=== PATIENT | female | born 1945 | race Caucasian/White ===

== ENCOUNTER 2018-03-08 20:14 | Inpatient (IN) | payer MEDICARE, OTHER ==
[~2018-03-08] VITALS: Ht 152.4 cm; Wt 54.0 kg
--- NOTE | ~2018-03-08 | CON ---
[address] [address] CONSULTATION Name: KRYSTINA GANN Room: [address] ADM IN M.R.#: [id number] Admission: 03/09/18 Attend Phys: Pranav Hernandez Discharge: Date of : 43 Report #: [id number] THIS REPORT FOR: //name// CC: [facility] physician/PCP Jabari Chaidez DATE OF SERVICE: 03/12/2018 REQUESTING PHYSICIAN: Jabari Chaidez DO. REASON FOR CONSULTATION: Acute kidney injury. HISTORY OF PRESENT ILLNESS: The patient is a 72-year-old female admitted to the hospital on 03/09/2018 with complaints of pain in the left kidney, not feeling well, some weakness and nausea. She has known history of chronic kidney disease and history of nephrolithiasis. So when she came in, she was found to have left pyelonephritis with a stone that was obstructing her left UPJ. She was taken to operating room. Dr. Boykin performed retrograde pyelogram and placed a stent there. Her creatinine on admission was 2.4, it is 3.0 now. Her white count unfortunately did go up and it is 15.2 now. So, she had some improvement, white count dropped from 17,000 to 11,000 after the procedure, but now it is slowly coming up again and creatinine is going up as well. PAST MEDICAL HISTORY: Significant for: 1. Chronic kidney disease stage 3. 2. History of recurrent nephrolithiasis. 3. History of urinary incontinence. MEDICATIONS: Reviewed. FAMILY HISTORY: Noncontributory to this condition. SOCIAL HISTORY: No tobacco or alcohol abuse. REVIEW OF SYSTEMS: Positive for urinary incontinence. She is really bothered by that and she wants to have Mcfadden catheter in again. She is still weak, but feels overall better. No fever, no chills, no nausea, no vomiting at the present time. PHYSICAL EXAMINATION: GENERAL: Awake, alert, oriented. VITAL SIGNS: Blood pressure is 160/67, heart rate is 80, temperature 36.8. HEENT: Pupils round. NECK: Supple. LUNGS: Clear. CARDIOVASCULAR: [place] [address] CONSULTATION Name: KRYSTINA GANN Room: [address] IN [facility]#: [id number] Admission: 03/09/18 Attend Phys: Pranav Hernandez Discharge: Date of : 43 Report #: [id number] ABDOMEN: Soft. LOWER EXTREMITIES: No edema. ASSESSMENT: 1. 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 2. Status post pyelogram with the placement of the stent in the left ureter. 3. The patient is on antibiotics. 4. Urinary incontinence. PLAN: 1. Reinsert Mcfadden. 2. P.o. hydration. The patient tells me that she has not been drinking fluids now because she does not want to have urinary incontinence. It is very important for her to hydrate herself well. 3. I will follow labs. I will also order ultrasound to see how the drainage from the left kidney is now. By: [id number] [id number] Mayes MD /WINSOME
[2018-03-08 20:18] VITALS: BP 107/74
[2018-03-08 20:53] LABS: ABSOLUTE BASOPHILS 0.1 thou/uL (0.0-0.2); ABSOLUTE EOSINOPHILS 0.1 thou/uL (0.0-0.7); ABSOLUTE LYMPHOCYTES 2.3 thou/uL (0.8-5.3); ABSOLUTE MONOCYTES 1.3 thou/uL (0.0-1.2); ABSOLUTE NEUTROPHILS 13.1 thou/uL (1.6-8.1); BASOPHILS 0.6 %; EOSINOPHILS 0.5 %; HEMATOCRIT 39.1 % (37.0-47.0); HEMOGLOBIN 12.7 gm/dL (12.0-15.0); LYMPHOCYTES 13.5 %; MCH 28.5 pg (26.0-34.0); MCHC 32.6 g/dL (28.0-37.0); MCV 87.2 fL (80.0-100.0); MONOCYTES 7.9 %; MPV 7.6 fl. (7.2-11.1); NUCLEATED RBCS 0 /100WBC; PLATELET COUNT* 358 thou/uL (150-400); POLYS 77.5 %; RBC 4.48 mil/uL (4.20-5.00); RDW-CV 16.2 % (10.5-14.5)
[2018-03-08 21:04] LABS: ANION GAP 6 mmol/L (7-16); BUN 26 mg/dL (7-18); CALCIUM 10.5 mg/dL (8.5-10.1); CHLORIDE 104 mmol/L (98-107); CO2 27 mmol/L (21-32); CREATININE 2.4 mg/dL (0.6-1.3); GLUCOSE 98 mg/dL (70-99); POTASSIUM 3.9 mmol/L (3.5-5.1); SODIUM 137 mmol/L (136-145)
[2018-03-08 21:15] LABS: ALBUMIN 3.6 g/dL (3.4-5.0); ALKALINE PHOSPHATASE 86 U/L (46-116); SGOT 21 U/L (15-37); SGPT 10 U/L (30-65); TOTAL BILIRUBIN 0.4 mg/dL (<0.1-1.0); TOTAL PROTEIN 8.3 g/dL (6.4-8.2); TROPONIN-I LEVEL <0.06 ng/mL (<0.06)
[2018-03-08 21:16] LABS: MAGNESIUM 2.1 mg/dL (1.8-2.4)
[2018-03-08 23:44] LABS: URINE BILIRUBIN NEGATIVE (Negative); URINE BLOOD 2+ (Negative); URINE CLARITY CLEAR; URINE COLOR STRAW; URINE GLUCOSE-RANDOM NEGATIVE (Negative); URINE KETONES NEGATIVE (Negative); URINE LEUKOCYTES-REFLEX 1+ (Negative); URINE NITRITE-REFLEX NEGATIVE (Negative); URINE PROTEIN TRACE (Negative); URINE SPECIFIC GRAVITY 1.015 (1.005-1.030); URINE UROBILINOGEN 0.2 E.U./dl (0.2-1.0)
[2018-03-08 23:50] LABS: SQUAMOUS 0-3 Few /LPF (0-3); URINE WBC-REFLEX >25 Many /HPF (0-5); WBC CLUMPS Moderate (None Seen)
[2018-03-08 23:51] LABS: BACTERIA-REFLEX >30 Many /HPF (None Seen); CRYSTALS None Seen /LPF (None Seen); FINE GRANULAR CASTS 0-3 Few /LPF (None Seen); MUCUS 4-6 Moderate strn/LPF (None Seen)
[2018-03-09] VITALS (7 sets, daily range): BP systolic 147–168; BP diastolic 56–90
--- NOTE | 2018-03-09 12:04 | EKG ---
[place] [address] ELECTROCARDIOGRAM REPORT Name: GANNTAISHA Room: [address] ADM IN M.R.#: [id number] Admission: 03/09/18 Attend Phys: Pranav Hernandez Discharge: Date of : 43 Report #: [id number] THIS REPORT FOR: //name// [facility] ED Test Date: 2018-03-08 Test Time: 20:54:36 Pat Name: TAISHA GANN Department: Room: [address] Gender: F Car Tracer: MELISSA : 1945 Requested By: Madisyn Schmidt Order Number: [id number] MD: Dejan Gaona Measurements Intervals [place] Rate: 80 P: 82 MD: 149 QRS: 70 QRSD: 94 T: 39 QT: 379 QTc: 438 Interpretive Statements Pacemaker spikes or artifacts Sinus rhythm No previous ECG available for comparison Electronically Signed On 03-09-2018 12:04:07 CDT by Dejan Gaona [email or web address] <ELECTRONICALLY SIGNED> By: Dejan Gaona MD, [facility] 03/09/18 1204 53 53 Dejan Gaona MD, FACC /EPI
[2018-03-09] MEDS ORDERED: ULTRAM 50MG TAB50 MG PO (17:26)
[2018-03-09] MEDS ORDERED: VITAMIN B-12500 MCG PO (17:26)
[2018-03-10 00:15] VITALS: BP 117/47
[2018-03-10 04:46] VITALS: BP 142/43
[2018-03-10 04:52] LABS: ABSOLUTE BASOPHILS 0.1 thou/uL (0.0-0.2); ABSOLUTE EOSINOPHILS 0.2 thou/uL (0.0-0.7); ABSOLUTE LYMPHOCYTES 2.6 thou/uL (0.8-5.3); ABSOLUTE NEUTROPHILS 7.2 thou/uL (1.6-8.1); BASOPHILS 0.5 %; EOSINOPHILS 1.6 %; HEMATOCRIT 32.5 % (37.0-47.0); LYMPHOCYTES 23.2 %; MCH 28.7 pg (26.0-34.0); MCHC 32.3 g/dL (28.0-37.0); MCV 88.7 fL (80.0-100.0); MONOCYTES 8.9 %; MPV 8.1 fl. (7.2-11.1); NUCLEATED RBCS 0 /100WBC; POLYS 65.8 %; RBC 3.67 mil/uL (4.20-5.00); RDW-CV 16.5 % (10.5-14.5)
[2018-03-10 04:58] LABS: CALCIUM 9.2 mg/dL (8.5-10.1); CREATININE 2.6 mg/dL (0.6-1.3); POTASSIUM 4.7 mmol/L (3.5-5.1)
[2018-03-10 05:10] LABS: HEMOGLOBIN 10.5 gm/dL (12.0-15.0); PLATELET COUNT* 272 thou/uL (150-400)
[2018-03-10 08:13] VITALS: BP 157/77
--- NOTE | 2018-03-10 10:08 | CON ---
[address] [address] CONSULTATION Name: KRYSTINA GANN Room: [address] ADM IN M.R.#: [id number] Admission: 03/09/18 Attend Phys: Pranav Hrenandez Discharge: Date of : 43 Report #: [id number] THIS REPORT FOR: //name// CC: [facility] physician/PCP Jabari Chaidez DATE OF SERVICE: 03/09/2018 Infectious Disease Consultation ATTENDING PHYSICIAN: Joseph Reese MD REASON FOR EVALUATION: Complicated urinary tract infection with pyelonephritis. HISTORY OF PRESENT ILLNESS: Chart reviewed, patient examined. The patient is a 72-year-old woman with evaluation, seen through the emergency room with complaints of weakness. She was reported to have multiple falls, had become quite sore. She was squeezing herself across on her buttocks. It is not clear if she has had fevers. Denies significant pulmonary or gastrointestinal related complaints. Evaluation including CBC was elevated at 17,000, creatinine of 2.4, total protein of 8.3. Imaging of the chest showed emphysematous changes. CT noted along the entirety of the spine. CT abdomen and pelvis essentially showed nodular infiltrate, bilateral lungs compatible with pneumonitis. There is gas within the urinary bladder, left ureter, and left renal pelvis. There is a left renal pelvic calculus. There is also a right-sided infrarenal calculus as well. There diverticulosis without diverticulitis. Urinalysis confirmed marked pyuria, marked bacteriuria and cultures pending. Empirically started on therapy with ceftriaxone. Denies any significant pulmonary-related complaints. ALLERGIES: None known. MEDICATIONS: Include enoxaparin, ceftriaxone, pantoprazole, hydralazine, ondansetron, p.r.n. analgesics, and antiemetics. PAST MEDICAL HISTORY: As noted, depression, COPD, neck surgeries. SOCIAL HISTORY: Former smoker. No ethanol. FAMILY HISTORY: Noncontributory. REVIEW OF SYSTEMS: As above. PHYSICAL EXAMINATION: GENERAL: She appears somewhat chronically ill, undernourished. She is pleasant, cooperative. She is in only mild distress. VITAL SIGNS: Temperature 98.6, pulse 79, respirations 18, [place] [address] CONSULTATION Name: KRYSTINA GANN Room: [address] IN [facility]#: [id number] Admission: 03/09/18 Attend Phys: Pranav Hernandez Discharge: Date of : 43 Report #: [id number] 147/61. SKIN: Warm, dry, no rashes. HEENT: Otherwise unremarkable. She is not on supplemental oxygen. NECK: Supple. LUNGS: Diminished breath sounds overall, few scattered crackles at the bases. HEART: Regular. I do not appreciate murmur. ABDOMEN: Soft, really nontender. There are no peritoneal signs. GENITOURINARY: Deferred. RECTAL: Deferred. LABORATORY DATA: CBC: White count of 17.0, H and H 12.7 and 39.1, platelets 358. Electrolytes: Sodium 137, potassium 3.9, chloride 104, bicarbonate is 27, BUN and creatinine 26 and 2.4, glucose of 98. Total protein 8.3, albumin of 3.6. LFTs normal. IMAGING STUDIES: As noted above. ASSESSMENT: Apparent emphysematous pyelonephritis. We will continue empiric antimicrobial therapy. We will add dose of quinolone as well as combination therapy for pseudomonas. Note that urology evaluation pending. Radiography looks worse than she does clinically. We will await results. <ELECTRONICALLY SIGNED> By: Jovanni Steven MD 03/10/18 1008 [id number] Steven MD /nt
[2018-03-10 15:35] VITALS: BP 128/88
--- NOTE | 2018-03-10 16:54 | OP ---
[facility] [address] [place] [address] OPERATIVE REPORT Name: KRYSTINA GANN Room: [address] IN M.R.#: [id number] Admission: 03/09/18 Attend Phys: Pranav Hernandez Discharge: Date of : 43 Report #: [id number] THIS REPORT FOR: //name// CC: [facility] physician/PCP Jabari Chaidez DATE OF SERVICE: 03/09/2018 PREOPERATIVE DIAGNOSIS: Left emphysematous pyelonephritis and left UPJ obstructing stone. POSTOPERATIVE DIAGNOSIS: Left emphysematous pyelonephritis and left UPJ obstructing stone. PROCEDURE: Cystourethroscopy, left retrograde pyelogram, left ureteral stent placement (6 x 26). SURGEON: Dorothy Boykin M.D. ANESTHESIA: General. ESTIMATED BLOOD LOSS: None. COMPLICATIONS: None. SPECIMENS: None. INDICATIONS FOR PROCEDURE: The patient is a 72-year-old female who presented with weakness and low back pain. CT scan revealed left hydronephrosis secondary to a large 1.3 cm left UPJ stone. She had gas in her left collecting system as well. She was afebrile and vital signs were stable, but urgent stent placement was indicated given her infection and obstructing stone. Risks of procedure were discussed including but not limited to infection, bleeding, injury to the urethra, bladder and ureter, need for secondary procedures, stent pain, cardiopulmonary complications. She understands that the stent is not permanent, must be removed in a timely fashion and that we will plan on stone treatment in a couple of weeks after she has completed antibiotic therapy. She voiced understanding and wished to proceed. DESCRIPTION OF PROCEDURE: After informed consent was obtained, the patient was taken back to the operating suite and placed supine. After induction of general anesthesia, she was placed in dorsal lithotomy position, genitalia prepped and draped in standard fashion. Rigid cystoscopy was performed. Bladder mucosa was normal aside from some cystitis cystica. She had some mild trabeculations, but there were no tumors or stones or diverticula. [place] [address] OPERATIVE REPORT Name: GANNKRYSTINA Room: [address] IN [facility].#: [id number] Admission: 03/09/18 Attend Phys: Pranav Hernandez Discharge: Date of : 43 Report #: [id number] cannulate the left UO with the assistance of a 5-Tajik open-ended catheter over the wire, the wire was threaded up into the collecting system, passed the stone without difficulty. I then passed the 5-Tajik open-ended catheter up into the collecting system without difficulty as well. No pus came back when the ureteral catheter was in the collecting system. Contrast was gently injected to delineate the collecting system for stent placement. This showed the stone had been pushed back into the renal pelvis, but she did have some [id number] hydronephrosis. A wire was replaced and a 5-Tajik open-ended catheter was removed. A 6-Tajik x 26 cm double-J stent was threaded over the wire. Good curl was seen within the upper pole and good curl was seen within the bladder. There was no purulence from the left side, just some mild debris. I did not adjust the stent into the renal pelvis as there was simply not much room for the stent alongside the stone and a very narrow renal pelvis. There was no purulent efflux from the stent, but she did have some debris come through the stent. The scope was removed and a Mcfadden catheter was placed. She was awoken, extubated and taken to recovery in satisfactory condition. She will be admitted to the floor on antibiotics, await cultures. She will need a full course of treatment of antibiotics before we intervene on the stone I would anticipate in a couple of weeks. <ELECTRONICALLY SIGNED> By: Dorothy Boykin MD 03/10/18 1654 [id number] Boykin MD /nt
[2018-03-10 20:00] VITALS: BP 141/59
[2018-03-11] VITALS: BP 137/73
[2018-03-11 04:08] VITALS: BP 127/55
[2018-03-11 04:42] LABS: ABSOLUTE LYMPHOCYTES 1.7 thou/uL (0.8-5.3); ABSOLUTE MONOCYTES 1.1 thou/uL (0.0-1.2); ABSOLUTE NEUTROPHILS 10.9 thou/uL (1.6-8.1); BASOPHILS 0.1 %; HEMATOCRIT 31.9 % (37.0-47.0); HEMOGLOBIN 10.4 gm/dL (12.0-15.0); LYMPHOCYTES 12.3 %; MCH 28.6 pg (26.0-34.0); MCHC 32.7 g/dL (28.0-37.0); MCV 87.5 fL (80.0-100.0); MONOCYTES 8.1 %; MPV 8.4 fl. (7.2-11.1); NUCLEATED RBCS 0 /100WBC; PLATELET COUNT* 273 thou/uL (150-400); POLYS 79.5 %; RBC 3.64 mil/uL (4.20-5.00); RDW-CV 16.1 % (10.5-14.5); WBC 13.8 thou/uL (4.0-11.0)
[2018-03-11 04:53] LABS: ALBUMIN 2.8 g/dL (3.4-5.0); CALCIUM 9.8 mg/dL (8.5-10.1); CREATININE 2.6 mg/dL (0.6-1.3); POTASSIUM 4.4 mmol/L (3.5-5.1); TOTAL BILIRUBIN 0.2 mg/dL (<0.1-1.0); TOTAL PROTEIN 6.9 g/dL (6.4-8.2)
[2018-03-11 08:21] VITALS: BP 159/75
[2018-03-11 16:00] VITALS: BP 155/65
[2018-03-11 20:00] VITALS: BP 142/74
[2018-03-11 23:26] VITALS: BP 155/76
[2018-03-12 04:00] VITALS: BP 162/67
[2018-03-12 04:25] LABS: ABSOLUTE BASOPHILS 0.1 thou/uL (0.0-0.2); ABSOLUTE EOSINOPHILS 0.2 thou/uL (0.0-0.7); ABSOLUTE LYMPHOCYTES 2.6 thou/uL (0.8-5.3); ABSOLUTE MONOCYTES 1.3 thou/uL (0.0-1.2); ABSOLUTE NEUTROPHILS 11.1 thou/uL (1.6-8.1); BASOPHILS 0.4 %; EOSINOPHILS 1.2 %; HEMATOCRIT 32.9 % (37.0-47.0); HEMOGLOBIN 10.6 gm/dL (12.0-15.0); LYMPHOCYTES 17.1 %; MCH 28.5 pg (26.0-34.0); MCHC 32.3 g/dL (28.0-37.0); MCV 88.2 fL (80.0-100.0); MONOCYTES 8.7 %; MPV 8.8 fl. (7.2-11.1); NUCLEATED RBCS 0 /100WBC; PLATELET COUNT* 291 thou/uL (150-400); POLYS 72.6 %; RBC 3.74 mil/uL (4.20-5.00); RDW-CV 16.3 % (10.5-14.5); WBC 15.2 thou/uL (4.0-11.0)
[2018-03-12 04:37] LABS: CALCIUM 9.4 mg/dL (8.5-10.1); POTASSIUM 4.2 mmol/L (3.5-5.1); TOTAL BILIRUBIN 0.2 mg/dL (<0.1-1.0); TOTAL PROTEIN 7.2 g/dL (6.4-8.2)
[2018-03-12 04:41] LABS: PREALBUMIN 19.9 mg/dL (18.0-35.7)
[2018-03-12 08:30] VITALS: BP 148/92
[2018-03-12 16:00] VITALS: BP 168/72
[2018-03-12 22:45] VITALS: BP 160/65
[2018-03-13] VITALS: BP 143/75
[2018-03-13 05:23] LABS: CALCIUM 9.7 mg/dL (8.5-10.1); CREATININE 2.9 mg/dL (0.6-1.3); POTASSIUM 4.7 mmol/L (3.5-5.1)
[2018-03-13 08:00] VITALS: BP 128/75
[2018-03-13 16:25] VITALS: BP 115/70
[2018-03-13 20:15] VITALS: BP 144/63
[2018-03-14] VITALS: BP 134/66
[2018-03-14 04:00] VITALS: BP 121/61
[2018-03-14 04:42] LABS: ABSOLUTE BASOPHILS 0.1 thou/uL (0.0-0.2); ABSOLUTE EOSINOPHILS 0.2 thou/uL (0.0-0.7); ABSOLUTE LYMPHOCYTES 2.6 thou/uL (0.8-5.3); ABSOLUTE MONOCYTES 1.1 thou/uL (0.0-1.2); ABSOLUTE NEUTROPHILS 6.4 thou/uL (1.6-8.1); BASOPHILS 0.6 %; EOSINOPHILS 2.1 %; HEMATOCRIT 31.1 % (37.0-47.0); HEMOGLOBIN 10.1 gm/dL (12.0-15.0); MCH 28.9 pg (26.0-34.0); MCHC 32.6 g/dL (28.0-37.0); MCV 88.7 fL (80.0-100.0); MONOCYTES 10.8 %; MPV 9.2 fl. (7.2-11.1); NUCLEATED RBCS 0 /100WBC; PLATELET COUNT* 280 thou/uL (150-400); POLYS 61.5 %; RBC 3.51 mil/uL (4.20-5.00); RDW-CV 16.6 % (10.5-14.5); WBC 10.4 thou/uL (4.0-11.0)
[2018-03-14 05:16] LABS: ALBUMIN 2.7 g/dL (3.4-5.0); ALBUMIN 2.8 g/dL (3.4-5.0); CALCIUM 9.3 mg/dL (8.5-10.1); CALCIUM 9.4 mg/dL (8.5-10.1); CREATININE 2.6 mg/dL (0.6-1.3); PHOSPHORUS* 3.7 mg/dL (2.5-4.9); POTASSIUM 5.1 mmol/L (3.5-5.1); POTASSIUM 5.6 mmol/L (3.5-5.1); TOTAL BILIRUBIN 0.2 mg/dL (<0.1-1.0); TOTAL PROTEIN 6.8 g/dL (6.4-8.2)
[2018-03-14 07:55] VITALS: BP 146/56
[2018-03-14 16:00] VITALS: BP 138/69
[2018-03-14 20:00] VITALS: BP 140/67
[2018-03-15 04:02] LABS: CALCIUM 8.8 mg/dL (8.5-10.1); CREATININE 2.4 mg/dL (0.6-1.3); MAGNESIUM 1.9 mg/dL (1.8-2.4); POTASSIUM 4.7 mmol/L (3.5-5.1)
[2018-03-15 07:40] VITALS: BP 148/68
[2018-03-15 15:53] VITALS: BP 142/66
[2018-03-15 20:00] VITALS: BP 141/71
[2018-03-16] MEDS ORDERED: XANAX 0.25 MG0.25 MG PO (08:22)
[2018-03-16] MEDS ORDERED: DOXYCYCLINE 10100 MG PO (08:22)
[2018-03-16] MEDS ORDERED: COLACE 100 MG100 MG PO (08:22)
== END 2018-03-16 15:58 | DRG 853 ==
LOC: M.ERS 20:14 → M.ORTHSURG 03-09 00:16 → M.TBA-ER 03-09 00:16 → M.2W 03-09 00:16 → M.ORTHSURG 03-09 00:16 → M.2W 03-09 01:18 → M.ORTHSURG 03-13 18:20
PROVIDERS: Emergency Medicine; Internal Medicine; Internal Medicine Nephrology; ADMIT Internal Medicine
PROC: 0T778DZ Dilation of Left Ureter with Intraluminal Device, Via Natural or Artificial Opening Endoscopic (ICD-10-PCS; principal; 2018-03-09)
PROC: BT1F1ZZ Fluoroscopy of Left Kidney, Ureter and Bladder using Low Osmolar Contrast (ICD-10-PCS; principal; 2018-03-09)
DX: A41.51 Sepsis due to Escherichia coli [E. coli] (principal); J15.6 Pneumonia due to other Gram-negative bacteria; N17.9 Acute kidney failure, unspecified; N11.1 Chronic obstructive pyelonephritis; N18.4 Chronic kidney disease, stage 4 (severe); G93.40 Encephalopathy, unspecified; N20.0 Calculus of kidney; F32.9 Major depressive disorder, single episode, unspecified; J44.9 Chronic obstructive pulmonary disease, unspecified; B96.20 Unspecified Escherichia coli [E. coli] as the cause of diseases classified elsewhere; N39.41 Urge incontinence; M19.90 Unspecified osteoarthritis, unspecified site; F43.21 Adjustment disorder with depressed mood; M48.061 Spinal stenosis, lumbar region without neurogenic claudication; Z28.21 Immunization not carried out because of patient refusal; Z87.891 Personal history of nicotine dependence

== ENCOUNTER 2018-03-16 12:56 | Inpatient (IN) | payer MEDICARE, OTHER ==
[~2018-03-16] VITALS: Ht 152.4 cm; Wt 53.8 kg
[~2018-03-16 12:56] MED LIST: COLACE 100 MG100 MG PO; DOXYCYCLINE 10100 MG PO; ULTRAM 50MG TAB50 MG PO; VITAMIN B-12500 MCG PO; XANAX 0.25 MG0.25 MG PO
[2018-03-16 16:17] VITALS: BP 164/74
--- NOTE | 2018-03-16 16:39 | NUR ---
PATIENT TRANSFERRED FROM [facility] TO REHAB. PATIENT IS ALERT AND ORIENTED. FORGETFUL AT TIMES. DENIES PAIN. ORIENTED TO ROOM AND ENVIROMENT. VSS. REAL IN PLACE WITH YELLOW URINE. BED ALARM SET. PT/OT/ST EVALS ORDERED. IV REMOVED. SKIN TEAR HEALING TO LEFT ELBOW. SCAR ON COCCYX. SCD'S IN PLACE. CALL LIGHT WITHIN REACH. WILL CONTINUE TO MONITOR.
[2018-03-16 20:15] VITALS: BP 169/79
[2018-03-17 03:57] LABS: HEMATOCRIT 33.8 % (37.0-47.0); HEMOGLOBIN 10.9 gm/dL (12.0-15.0); MCH 28.5 pg (26.0-34.0); MCHC 32.1 g/dL (28.0-37.0); MCV 88.6 fL (80.0-100.0); RBC 3.81 mil/uL (4.20-5.00); WBC 10.7 thou/uL (4.0-11.0)
[2018-03-17 04:29] LABS: CALCIUM 9.6 mg/dL (8.5-10.1); CREATININE 2.4 mg/dL (0.6-1.3); POTASSIUM 4.6 mmol/L (3.5-5.1)
--- NOTE | 2018-03-17 04:43 | NUR ---
Assumed patient care at 1900. Patinet alert and oriented times four with some confusion noted. PAtient resting in bed upon arrival. Able to take pills whole with water. Turned q2h. Did not attempt to get out of bed through the night. No complaints of pain or discomfort noted. 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
[2018-03-17 08:05] VITALS: BP 164/85
--- NOTE | 2018-03-17 17:00 | NUR ---
PT PROGRESSING SLOWLY TOWARDS GOALS. PT WORKING WITH THERAPY; REQUIRING MAX ASSIST TO TRANSFER FROM BED/CHAIR. PT STATES SHE IS AFRAID OF FALLING. C/O HEADACHE INTERMITTENLY THROUGHOUT SHIFT, TREATED WITH PRN TYLENOL. NO FAMILY AT BEDSIDE. PT DENIES FURTHER QUESTIONS/CONCERNS.
[2018-03-17 20:00] VITALS: BP 136/74
--- NOTE | 2018-03-18 05:12 | NUR ---
ASSUMED CARES AT 1920. ALERT AND ORIENTED. PLEASANT. ALREADY IN BED. C/O BACK PAIN. PAIN MEDS GIVEN SCHEDULED. TAKES PILLS WHOLE WITHOUT ISSUES. REAL CATHETER DD YELLOW URINE. SLEPT MOST OF THE NIGHT. CALL LIGHT IN REACH AND BED ALARM ON.
[2018-03-18 07:35] VITALS: BP 141/78
--- NOTE | 2018-03-18 16:18 | NUR ---
ASSUMED CARE AT 0730. ALERT ORIENTED PLEASANT COOPERATIVE. HX OF DEBILITY UTI URETERAL STENT. PT. IS VERY ANXIOUS AND FEARFUL WITH TRANSFERS. TRANSFERRED TO W/C WITH MECHANICAL LIFT AND ASSIST OF TWO. PT. NEEDS MUCH ENCOURAGEMENT HAS TREMORS AND JERKING OF ALL EXTREMETIES WITH TRANSFERS THIS AFTERNOON. ASSISTED TO DROP ARM COMMODE WITH LIFT BUT USED SLIDING BOARD TO GET INTO BED AFTER USING BSC. TURNED REPOSITIONED TO L SIDE AFTER GETTING INTO BED. HAD MOD BM IN BSC. TAKES MEDS WITHOUT DIFFICULTY FEEDS SELF WITH SET UP. HX OF CHRONIC BACK PAIN. REDNESS BUTTOCKS MOISTURE BARRIER APPLIED. WANTS TO DO FOR HERSELF FINDS IT DIFFICULT TO HAVE STAFF DOING FOR HER,
[2018-03-18 20:15] VITALS: BP 151/71
--- NOTE | 2018-03-19 05:12 | NUR ---
ASSUMED CARE AT 1920. ALERT AND ORIENTED. PLEASANT BUT GETS EASILY WORRIED ABOUT VARIOUS THINGS. WAS ALREADY IN BED. REAL CATHETER DD YELLOW URINE. TRAMADOL GIVEN FOR BACK PAIN. TURNED Q 2 HRS. HOWEVER SHE IS ABLE TO MOVE HERSELF WELL IN BED. SLEPT OFF AND ON OTHERWISE. CALL LIGHT IN REACH AND BED ALARM ON.
[2018-03-19 07:48] VITALS: BP 133/63
--- NOTE | 2018-03-19 10:56 | NUR ---
NUTRITION: Consult for diet. Pt has food preferences - cannot eat hot cereals very well d/t tremors, also wants hot cocoa with all BKFSTS. RD ordered all of this for pt. Alb 2.8, prealb 18.1. Pt is eating well. RX, Hx, labs noted. Low nutrition risk.
--- NOTE | 2018-03-19 17:26 | NUR ---
SW met with pt to complete initial assessment, introduce self, and SW role on inpt rehab unit. Pt alert, oriented. Pt expressed that she felt she was not doing well yet with therapy and that she thinks it is due to her tremors and her anxiety. Pt said that Dr Mahajan addressed pt anxiety and said that she would order needed medication as well. Pt used to live with her dtr but now lives alone but pt did not recall her address; she said she knows where it is in [place]. Pt has RW and cane and is wondering about stair glide; SW to provide resources. SW to continue to follow to assist with safe dc planning.
--- NOTE | 2018-03-19 18:13 | NUR ---
PT CARE ASSUMED AT 1230, I AGREE WITH PREVIOUS ASSESSMENT. PT HAS EATEN HER MEALS IN HER ROOM, STATES SHE DOESN'T WANT TO EAT IN THE DINING ROOM BECAUSE HER TREMORS CAUSE HER TO BE A MESSY EATER. PT HAS BEEN PLEASANT BUT IS VERY FEARFUL AND HER ABILITY TO COOPERATE IS AFFECTED. FALL PRECAUTIONS AND HOURLY ROUNDING CONTINUE. NO ACUTE DISTRESS.
--- NOTE | 2018-03-19 18:57 | NUR ---
PT STATED SHE WANTED TO GET INTO BED. AFTER CHANGING INTO A HOSPITAL GOWN PT MADE SEVERAL ATEMPTS TO TRANSFER FROM THE WHEELCHAIR TO THE BED BUT EACH TIME SHE LIFTED HER FEET OFF OF THE FLOOR AND PUSHED HERSELF BACKWARDS. PT EVENTUALLY STATED SHE WOULD TAKE THE ANXIETY MEDICATION AND TRY AGAIN LATER. ALPRAZALOM 0.25MG GIVEN AT THIS TIME.
[2018-03-19 20:00] VITALS: BP 144/66
--- NOTE | 2018-03-20 05:21 | NUR ---
ASSUMED CARES AT 1920. ALERT AND ORIENTED BUT SOMEWHAT ANXIOUS. PT UP IN W/C. TRAMADOL GIVEN FOR BACK PAIN. TAKES PILLS WHOLE WITHOUT ISSUES. MAX ASSIST X 2 PERSON GAIT BELT. STAND AND PIVOT. PT BECAME TENSE AND STIFF MAKING IT DIFFICULT TO TRANSFER PROPERLY. HOWEVER PT DOES MOVE AND TURN HERSELF VERY EASILY IN BED. REAL CATHETER DD YELLOW URINE. SLEPT WELL MOST OF THE NIGHT. CALL LIGHT IN REACH AND BED ALARM ON.
[2018-03-20 08:30] VITALS: BP 139/67
--- NOTE | 2018-03-20 14:10 | NUR ---
ASSUMED CARE AT 0730 PATIENT ALERT/ORIENTED, NO COMPLAINTS OF PAIN THIS SHIFT, VERY ANXIOUS, HAS PARTICIPATED IN ALL THERAPIES TODAY, BED/CHAIR ALARMS IN PLACE, CALL LIGHT IN REACH, HOURLY ROUNDING COMPLETED. UP WITH THERAPIES, OT STATED PATIENT STOOD UP BY SELF AT SINK AND WAS ABLE TO PULL UP PANTS. PT HAD PATIENT WALKING WITH WALKER. BOTH THERAPIES STATE THAT THEY HAVE TO GIVE PATIENT PLENTY OF TIME TO ADJUST TO DOING ANY CHANGES, DOES DEEP BREATHING TECHNIQUES AND GOES SLOWLY WITH PATIENT.
--- NOTE | 2018-03-20 15:54 | NUR ---
ASSUMED CARE OF PT AT 1500. PT IN ROOM WATCHING TELEVISION. THIS NURSE SPOKE WITH PT REGARDING STARTING NEW MEDICATION. PT EXPRESSED UNDERSTANDING AND AGREED TO TAKE MED. WILL CONT TO MONITOR. CALL LIGHT IN REACH.
[2018-03-20 20:00] VITALS: BP 125/98
--- NOTE | 2018-03-21 05:21 | NUR ---
ASSUMED PT CARE AT 1930. PT SITTING UP IN WHEELCHAIR AT SHIFT CHANGE. ALERT AND ORIENTED BUT ANXIOUS. SCHEDULED TRAMADOL FOR BACK PAIN. TAKES PILLS WHOLE WITH WATER WITHOUT DIFFICULTY. MAX ASSIST OF 2, GAIT BELT, STAND/PIVOT FROM WHEELCHAIR TO BED. PT SO ANXIOUS SHE WAS BARELY ABLE TO STAND AFTER EXTENSIVE ENCOURAGEMENT AND THEN HAD TO BE CARRIED/LIFTED TO THE BED TO AVOID A FALL. PT MOVES EASILY AND TURNS HERSELF IN BED. REAL CATHETER TO DD, DRAINING YELLOW URINE. PT SLEPT WELL MOST OF THE NIGHT. CALL LIGHT AND FREQUENTLY USED ITEMS WITHIN REACH. BED ALARM ON FOR SAFETY, HOURLY ROUNDING IN PROGRESS, WILL CONTINUE TO MONITOR.
[2018-03-21 08:08] VITALS: BP 150/66
--- NOTE | 2018-03-21 15:09 | NUR ---
PADMA and Aayush, med student, met with pt to review team conference summary and plan for pt to continue therapies (possibly be an interupted stay due to urology needs and removal of stent) and then for to to reassess pt length of stay during team conference next Wednesday 03/28. Pt in agreement with plan. SW to continue to follow to assist with safe dc planning.
--- NOTE | 2018-03-21 17:47 | NUR ---
ASSUMED CARE AT 0730 PATIENT ALERT/ORIENTED, NO COMPLAINTS OF PAIN THIS SHIFT, PARTICIPATED IN ALL THERAPIES TODAY, TO DINING ROOM FOR MEALS, BED/CHAIR ALARMS IN PLACE, CALL LIGHT IN REACH, CONTINUES TO BE EXTREMELY ANXIOUS ABOUT TRANSFERS. XANAX GIVEN X1 THIS AFTERNOON WITH MINIMAL RELIEF REPORTED. HOURLY ROUNDING COMPLETED
[2018-03-21 20:00] VITALS: BP 134/71
--- NOTE | 2018-03-22 05:25 | NUR ---
ASSUMED PT CARE AT 1930. PT ALERT AND ORIENTED, ALREADY IN BED AT SHIFT CHANGE. PT CALLED OUT TO GO TO BATHROOM TO ATTEMPT BOWEL MOVEMENT BUT WAS UNABLE TO STAND. PT STAMPED HER FEET ON THE FLOOR WHILE SITTING IN BED SAYING SHE WAS TRYING TO WAKE THEM UP. BEDSIDE COMMODE PLACED NEXT TO PT BUT WHEN SHE WOULD TRY TO STAND SHE WOULD STIFFEN AND THROW HER WEIGHT BACK TOWARD THE BED. BEDPAN PROVIDED BUT NO STOOL FORTHCOMING. REAL TO DD PATENT, DRAINING LIGHT YELLOW URINE. PT SLEPT WELL OVERNIGHT EXCEPT FOR TURNS. CALL LIGHT AND FREQUENTLY USED ITEMS WITHIN REACH. BED ALARM ON FOR SAFETY. HOURLY ROUNDING IN PROGRESS, WILL CONTINUE TO MONITOR.
[2018-03-22 08:00] VITALS: BP 142/68
--- NOTE | 2018-03-22 17:50 | NUR ---
ASSUMED CARE AT 0730 PATIENT ALERT/ORIENTED, SCHEDULED TRAMADOL FOR BACK PAIN GIVEN, PATIENT UP WITH ONE, DOES NOT LIKE ANYONE TO TOUCH HER, BUT SHE DOES STAND UP BY PULLING UP FROM THE GRAB BARS IN BATHROOM FROM W/C OR TO THE BED WITH A STAND/PIVOT WITH NURSING. HOURLY ROUNDING COMPLETED, BED/CHAIR ALARMS IN PLACE, CALL LIGHT IN REACH, PARTICIPATED IN ALL THERAPIES TODAY, GAIT BELT ON WITH TRANSFERS.
[2018-03-22 20:00] VITALS: BP 155/93
--- NOTE | 2018-03-23 05:18 | NUR ---
ASSUMED CARES AT 1920. PT ALREADY IN BED. ALERT AND ORIENTED. PLEASANT. TRAMDOL GIVEN FOR BACK PAIN. TOOK PILLS WHOLE WITHOUT ISSUES. PT PICKED ON SCAB TO RIGHT FOREARM. AREA CLEANSED AND DRESSING APPLIED. REAL CATHETER DD DARK YELLOW URINE. SLEPT OFF AND ON. CALL LIGHT IN REACH AND BED ALARM ON.
[2018-03-23 08:00] VITALS: BP 150/71
--- NOTE | 2018-03-23 14:30 | NUR ---
ASSUMED CARE AT 0730. ALERT ORIENTED PLEASANT COOPERATIVE. HX OF DEBILITY AND FALLS AT HOME ALSO HAS HX OF URETERAL STENT PLACEMENT AND UTI. PARTICIPATING IN THERAPIES THROUGHOUT THE DAY. USES CALL LIGHT APPROPRIATELY FOR ASSIST. REAL PATENT WITH WENDY URINE TO DD BAG. FEEDS SELF APPETITE FAIRLY GOOD. C/O RT. LUNG AREA PAIN MUSCLE AND HX OF CHRONIC BACK PAIN. MEDICATED X 1 WITH SCHEDULED TRAMADOL THIS A.M.
[2018-03-23 19:54] VITALS: BP 152/61
--- NOTE | 2018-03-23 22:43 | NUR ---
ASSUMED CARE AT 1930. PATIENT RESTING IN BED. PATIENT ABLE TO TURN SELF EASILY IN BED. POSITIONED WITH PILLOWS. TAKES PILLS WHOLE WITH WATER WITHOUT DIFF. REAL DRAINING WENDY URINE TO DD. MOISTURE BARRIER TO BUTTOCKS, SCARRED AREA PINK BUT INTACT. SCHEDULED TRAMADOL GIVEN FOR BACK PAIN. ALSO JORDAN ALVARADO APPLIED TO ENTIRE BACK PER REQUEST. SEE MAR. HOURLY ROUNDS CONTINUE. BED ALARM ON. CALL LITE IN REACH.
--- NOTE | 2018-03-24 05:33 | NUR ---
SLEPT THIS SHIFT. AWAKENED TO ASSIST WITH TURNS, THEN PATIENT FALLS BACK TO SLEEP. NO C/O PAIN. REAL CONTINUES TO DRAIN WENDY URINE PER DD. HOURLY ROUNDS CONTINUE. BED ALARM ON. CALL LITE IN REACH.
[2018-03-24 08:30] VITALS: BP 132/70
--- NOTE | 2018-03-24 14:08 | NUR ---
CONSENT FOR PROCEDURE ON MONDAY HAS BEEN SIGNED BY PATIENT AND IS ON FRONT OF CHART
--- NOTE | 2018-03-24 18:21 | NUR ---
ASSUMED CARE AT 0730 PATIENT ALERT/ORIENTED, LOW BACK PAIN, WITH SCHEDULED TRAMADOL GIVEN. PATIENT DID PARTICIPATE IN THERAPIES IN BED TODAY, REFUSED TO GET OUT OF BED, SHE HAD NEW THERAPIES AND WAS NOT COMFORTABLE GETTING UP WITH THEM, XANAX GIVEN X1 WITH FAIR RESULTS. HOURLY ROUNDING COMPLETED, BED ALARMS IN PLACE, CALL LIGHT IN REACH. DID NOT GO TO DINING ROOM SINCE IN BED ALL DAY. SCHEDULED FOR SURGERY ON MONDAY AND WILL TRANSFER BACK TO ACUTE UNIT MONDAY MORNING
[2018-03-24 20:00] VITALS: BP 109/73
--- NOTE | 2018-03-25 05:15 | NUR ---
ASSUMED PT CARE AT 1930. PT ALERT AND ORIENTED, PT HAS FLAT AFFECT AND APPEARS ANXIOUS. TAKES PILLS WHOLE WITH WATER WITHOUT DIFFICULTY. SCHEDULED TRAMADOL FOR BACK PAIN. PT CAN TURN HERSELF EASILY IN BED. REPOSITIONED WITH PILLOWS. REAL DRAINING CLEAR YELLOW URINE TO DD. CALL LIGHT AND FREQUENTLY USED ITEMS WITHIN REACH. BED ALARM ON FOR SAFETY. HOURLY ROUNDING IN PROGRESS, WILL CONTINUE TO MONITOR.
[2018-03-25 08:09] VITALS: BP 139/62
--- NOTE | 2018-03-25 18:23 | NUR ---
ASSUMED CARE AT 0730 PATIENT ALERT/ORIENTED, NO COMPLAINTS OF PAIN THIS SHIFT, REFUSED TO GET OUT OF BED TODAY, TURN [id number], REAL CATHETER PATENT/DRAINING CLEAR YELLOW URINE, NPO AT MIDNIGHT FOR SURGERY TOMORROW AFTERNOON, WILL BE TRANSFERED TO [facility] IN THE AM. HOURLY ROUNDING COMPLETED, BED ALARMS IN PLACE, CALL LIGHT IN REACH
[2018-03-25 20:00] VITALS: BP 143/62
--- NOTE | 2018-03-26 05:18 | NUR ---
ASSUMED PT CARE AT 1930. PT ALERT AND ORIENTED BUT STILL ANXIOUS. PT ON SCHEDULED TRAMADOL FOR BACK PAIN. PT IN BED AT SHIFT CHANGE. STOOL X3 THIS SHIFT. PT USES BEDPAN, REFUSES TO GET OUT OF BED. COPIOUS AMOUNTS OF LIQUID STOOL TWICE, ONE ADDITIONAL SMALLER STOOL. TURN Q2 OVERNIGHT. REAL CATHETER PATENT, DRAINING YELLOW URINE. PT NPO AT MIDNIGHT FOR SURGERY TODAY. PT TO BE TRANSFERRED TO ACUTE THIS MORNING. CALL LIGHT AND FREQUENTLY USED ITEMS WITHIN REACH. HOURLY ROUNDING IN PROGRESS, WILL CONTINUE TO MONITOR.
[2018-03-26 07:30] VITALS: BP 154/75
[2018-03-26 08:00] VITALS: BP 154/75
[2018-03-26 09:37] VITALS: BP 154/75
--- NOTE | 2018-03-26 09:37 | NUR ---
ASSUMED CARE AT 0730. ALERT ORIENTED PLEASANT COOPERATIVE. HX OF DEBILITY RECENT FALLS. NPO AT MIDNIGHT FOR PROCEDURES TODAY. PERMIT SIGNED FOR THIS ON CHART. DENIES PAIN OR CONCERNS. TURNS EASILY SIDE TO SIDE IN BED. REAL PATENT WITH YELLOW URINE TO DD BAG. VS WNL. HOSPITAL GOWN ON. PREOP CHECKLIST IN [employer].
--- NOTE | 2018-03-26 11:26 | NUR ---
PT. DISCHARGED TO [facility] ROOM 114 PER BED REPORT CALLED TO [facility].
[2018-03-27] MEDS ORDERED: DIFLUCAN200 MG PO (11:18)
[2018-03-27] MEDS ORDERED: SERTRALINE HCL50 MG PO (11:19)
[2018-03-27] MEDS ORDERED: ROBAXIN 750 MG750 M1 PO (11:21)
== END 2018-03-26 11:45 | disposition short-term general hospital (02) | DRG 690 ==
LOC: M.REH 12:56
PROVIDERS: ADMIT Physical Medicine & Rehabilitation
DX: N12 Tubulo-interstitial nephritis, not specified as acute or chronic (principal); N20.1 Calculus of ureter; N17.9 Acute kidney failure, unspecified; M19.90 Unspecified osteoarthritis, unspecified site; F32.9 Major depressive disorder, single episode, unspecified; R53.1 Weakness; F41.9 Anxiety disorder, unspecified; R51 Headache; R26.2 Difficulty in walking, not elsewhere classified; Z87.891 Personal history of nicotine dependence; Z87.442 Personal history of urinary calculi; Z79.899 Other long term (current) drug therapy; Z88.8 Allergy status to other drugs, medicaments and biological substances; Z28.21 Immunization not carried out because of patient refusal

== ENCOUNTER 2018-03-26 11:38 | Inpatient (IN) | payer MEDICARE, OTHER ==
[~2018-03-26] VITALS: Ht 170.2 cm; Wt 55.3 kg
--- NOTE | ~2018-03-26 | OP ---
[address] [address] OPERATIVE REPORT Name: KRYSTINA GANN Room: [address] IN .R.#: [id number] Admission: 03/26/18 Attend Phys: Jose David Garcia Discharge: Date of : 43 Report #: [id number] THIS REPORT FOR: //name// CC: [facility] physician/PCP Sabas Vasquez DATE OF SERVICE: 03/26/2018 INDICATION FOR PROCEDURE: The patient is a 72-year-old female who recently required a left double-J stent placement by Dr. Boykin for urosepsis associated with an obstructing left ureteropelvic junction calculus. She has received IV antibiotics, has recovered nicely from her recent infection and presents today for formal stone management. PREOPERATIVE DIAGNOSIS: Left renal stones. POSTOPERATIVE DIAGNOSIS: Left renal stones. PROCEDURE: Cystoscopy, left ureteroscopic stone extraction with holmium laser lithotripsy, left double-J stent exchange. SURGEON: Dejan Aguilar MD ANESTHESIA: General. COMPLICATIONS: None. ESTIMATED BLOOD LOSS: None. DESCRIPTION OF PROCEDURE: The patient was consented for the above procedure. She was given broad spectrum IV antibiotics preoperatively. She was given general anesthetic and placed in a dorsal lithotomy position. She was prepped and draped in usual sterile fashion over the genitalia. Cystoscopy was performed with the 22-Thai sheath and 30 degree lens, which revealed a left double-J stent in the proper position. The UPJ stone was easily visualized on fluoroscopy. Grasping forceps were used to grasp the tip of the stent, which was brought out through the urethral meatus and then a 0.035 floppy-tipped guidewire was passed up the stent and up into the left renal pelvis under fluoroscopic guidance without difficulty. The stent was removed leaving the wire in place. Next, an 11/13 Thai ureteral access sheath was passed over the wire up the left ureter and near the ureteropelvic junction under fluoroscopic guidance without difficulty. The guidewire and trocar were removed leaving the sheath in place. Next, the flexible ureteroscope was used to perform ureteroscopy without difficulty through the sheath and passed to the ureteropelvic junction. This large stone was then pushed into a middle pole kt where it was trapped. A 200 micron holmium [place] [address] OPERATIVE REPORT Name: KRYSTINA GANN Room: [address] IN [facility]#: [id number] Admission: 03/26/18 Attend Phys: Jose David Garcia Discharge: Date of : 43 Report #: [id number] fragment the stone into passable size pieces. This was a large stone, but relatively soft and broke up readily into very small fragments. Once I was satisfied that the stone was fragmented well enough to spontaneously pass, full evaluation of the entire collecting system was performed with the ureteroscope. A second stone was identified, which was also fragmented into passable size pieces. This confirms the two stones seen on CT scan. Once I was confident with the size of the stones, I elected to halt the procedure. The ureteroscope was removed. The guidewire was passed back up the access sheath under fluoroscopic guidance. The access sheath was removed and then a new 4.8 x 26 double-J stent was passed over the wire with a good curl noted in the renal pelvis and in the bladder after removing the wire. This was confirmed with fluoroscopy and cystoscopy. The bladder was drained, the scope was removed and a new 16-Thai Mcfadden catheter was placed. She was awakened and sent to recovery room where she remained in stable condition. We will leave the stent in for approximately 2 more weeks to allow any small fragments to pass and we will remove the stent in the office. By: [id number] [id number] Aguliar MD /rachel
[2018-03-26 12:20] LABS: HEMOGLOBIN 12.3 gm/dL (12.0-15.0); MCH 28.3 pg (26.0-34.0); MCHC 32.5 g/dL (28.0-37.0); MCV 87.2 fL (80.0-100.0); MPV 8.2 fl. (7.2-11.1); RBC 4.36 mil/uL (4.20-5.00); RDW-CV 15.4 % (10.5-14.5); WBC 16.1 thou/uL (4.0-11.0)
[2018-03-26 12:26] LABS: CALCIUM 9.9 mg/dL (8.5-10.1); CREATININE 2.9 mg/dL (0.6-1.3); POTASSIUM 4.6 mmol/L (3.5-5.1)
[2018-03-26 16:00] VITALS: BP 128/64
--- NOTE | 2018-03-26 20:34 | NUR ---
PT BROUGHT TO UNIT @ 1145 FROM REHAB AND DIRECTLY TAKEN TO HAVE PROCEDURE. RETURNED TO UNIT @ 1530. ADMISSION COMPLETED WITH PATIENT. PT IS ALERT AND ORIENTED X 3. REAL IN PLACE WITH PALE YELLOW URINE. IVF INFUSING @ 75 CC/HR. PT DENIES PAIN OR NAUSEA. SCDS IN PLACE BILAT. HOURLY ROUNDS MAINTAINED. CALL LIGHT WITHIN REACH.
[2018-03-26 21:27] VITALS: BP 137/74
[2018-03-27] VITALS: BP 128/68
[2018-03-27 04:26] LABS: HEMATOCRIT 36.4 % (37.0-47.0); HEMOGLOBIN 11.6 gm/dL (12.0-15.0); MCH 28.5 pg (26.0-34.0); MCHC 31.8 g/dL (28.0-37.0); MCV 89.4 fL (80.0-100.0); MPV 8.9 fl. (7.2-11.1); RBC 4.07 mil/uL (4.20-5.00); RDW-CV 15.5 % (10.5-14.5); WBC 17.1 thou/uL (4.0-11.0)
[2018-03-27 04:43] LABS: ALBUMIN 2.7 g/dL (3.4-5.0); CALCIUM 9.4 mg/dL (8.5-10.1); CREATININE 2.9 mg/dL (0.6-1.3); POTASSIUM 5.4 mmol/L (3.5-5.1); TOTAL BILIRUBIN 0.3 mg/dL (<0.1-1.0); TOTAL PROTEIN 6.7 g/dL (6.4-8.2)
--- NOTE | 2018-03-27 05:12 | NUR ---
ASSUMED CARE OF PATIENT AT APPROX 1930. ALERT AND ORIENTED X4. ASSESSMENT COMPLETED AND CHARTED. VSS ON ROOM AIR. FLUIDS INFUSED ORDERED. NO COMPLEINTS OF NAUSEA OR SOA. PAIN HAS BEEN MINIMAL AND MANAGED WITH SCHEDULED TRAMADOL. PATIENT SLEPT THROUGHOUT THE NIGHT. HOURLY ROUNDS MAINTAINED. CALL LIGHT WITHIN REACH. NURSING WILL CONTINUE TO MONITOR.
[2018-03-27 09:00] VITALS: BP 143/74
--- NOTE | 2018-03-27 11:00 | NUR ---
NOTIFIED STEFF/REHAB LIASON THAT PT.HAD DISCHARGE ORDERS TO RETURN TO INPT.REHAB UNIT. SHE SAID PT.WOULD NEED PT/OT TODAY TO SHOW SHE QUALIFIED FOR REHAB. ORDERS PUT IN COMPUTER. STEFF SAID SHE WOULD LET PT/OT KNOW TO SEE PT.TODAY SO SHE COULD COME UP TO REHAB LATER TODAY.
[2018-03-27] MEDS ORDERED: DIFLUCAN200 MG PO (11:18)
[2018-03-27] MEDS ORDERED: SERTRALINE HCL50 MG PO (11:19)
[2018-03-27] MEDS ORDERED: ROBAXIN 750 MG750 M1 PO (11:21)
--- NOTE | 2018-03-27 18:07 | NUR ---
PT ALERT AND ORIENTED X 4 WITH FLAT AFFECT. IVF INFUSING @ 75 MLS/HR. REAL IN PLACE. SCDS ON. PT PARTICIPATED WITH THERAPY IN AFTERNOON. C/O BACK PAIN. RECEIVES TRAMADOL SCHEDULED FOR PAIN. PICTURES TAKEN OF HEALED AREAS ON BUTTOCKS. HOURLY ROUNDS MAINTAINED. CALL LIGHT WITHIN REACH.
[2018-03-27 19:55] VITALS: BP 145/76
--- NOTE | 2018-03-28 05:12 | NUR ---
PT AT 95% O2 ON ROOM AIR. PT IS AXO X4 AND A Q2HR TURN. PT C/O PAIN ON R SIDE OF ABD THAT RADIATES. PAIN MEDICATION GIVEN CHARTED. PT UP WITH X1 ASSIST. FALL RISK PRECAUTIONS IN PLACE CHARTED. HOURLY ROUNDING COMPLETED. WILL CONTINUE TO MONITOR.
[2018-03-28 07:42] VITALS: BP 141/66
[2018-03-28 09:37] VITALS: BP 141/66
[2018-03-28 09:40] VITALS: BP 141/66
--- NOTE | 2018-03-28 09:44 | NUR ---
PT DISCHARGE PACKET CREATED AND PLACED IN CHART. MEDICARE RIGHTS SHEET SIGNED. PT CHART AND PT SENT UP TO REHAB VIA BED. IV REMOVED. REAL IN PLACE. HOURLY ROUNDING CCOMPLETED. MORNING MEDS AND FLU VACCINE GIVEN.
== END 2018-03-28 10:01 | DRG 659 ==
LOC: M.ORTHSURG 11:38
PROVIDERS: Urology; ADMIT Internal Medicine
DX: N20.0 Calculus of kidney (principal); R65.11 Systemic inflammatory response syndrome (SIRS) of non-infectious origin with acute organ dysfunction; N17.0 Acute kidney failure with tubular necrosis; E44.0 Moderate protein-calorie malnutrition; Z68.1 Body mass index [BMI] 19.9 or less, adult; N18.3 Chronic kidney disease, stage 3 (moderate); F41.9 Anxiety disorder, unspecified; M62.830 Muscle spasm of back; R56.9 Unspecified convulsions; Z87.891 Personal history of nicotine dependence; Z79.899 Other long term (current) drug therapy; Z88.8 Allergy status to other drugs, medicaments and biological substances; Z23 Encounter for immunization

== ENCOUNTER 2018-03-27 17:54 | Inpatient (IN) | payer MEDICARE, OTHER ==
[~2018-03-27] VITALS: Ht 152.4 cm; Wt 54.6 kg
--- NOTE | ~2018-03-27 | H ---
[address] [address] HISTORY AND PHYSICAL Name: KRYSTINA GANN Room: [address] IN .R.#: [id number] Admission: 03/28/18 Attend Phys: Oma Mahajan DO Discharge: 04/05/18 Date of : 43 Report #: [id number] THIS REPORT FOR: //name// CC: FAM physician/PCP Oma Mahajan DATE OF SERVICE: 03/28/2018 ADDENDUM. This is an interrupted stay. It is linked to previous . Please also see perceptive content for previous history and physical as well as plan of care, that would be linked to [id number]. The patient was admitted acutely for urology procedure. She did well. She was participating in physical and occupational therapy. She has now returned to acute rehabilitation to facilitate safe discharge home. Please see progress notes and if needed an updated plan of care. By: 1407 1422Oma Mahajan DO /nt
[~2018-03-27 17:54] MED LIST changes: +DIFLUCAN200 MG PO; +ROBAXIN 750 MG750 M1 PO; +SERTRALINE HCL50 MG PO
[2018-03-28 20:00] VITALS: BP 138/70
[2018-03-29 04:51] LABS: ABSOLUTE BASOPHILS 0.1 thou/uL (0.0-0.2); ABSOLUTE EOSINOPHILS 0.2 thou/uL (0.0-0.7); ABSOLUTE LYMPHOCYTES 2.1 thou/uL (0.8-5.3); ABSOLUTE MONOCYTES 1.4 thou/uL (0.0-1.2); ABSOLUTE NEUTROPHILS 9.8 thou/uL (1.6-8.1); EOSINOPHILS 1.4 %; HEMATOCRIT 34.5 % (37.0-47.0); HEMOGLOBIN 11.2 gm/dL (12.0-15.0); LYMPHOCYTES 15.3 %; MCH 28.7 pg (26.0-34.0); MCHC 32.6 g/dL (28.0-37.0); MPV 9.3 fl. (7.2-11.1); NUCLEATED RBCS 0 /100WBC; PLATELET COUNT* 385 thou/uL (150-400); POLYS 72.3 %; RBC 3.92 mil/uL (4.20-5.00); RDW-CV 15.7 % (10.5-14.5); WBC 13.6 thou/uL (4.0-11.0)
[2018-03-29 05:11] LABS: CALCIUM 9.7 mg/dL (8.5-10.1); CREATININE 2.8 mg/dL (0.6-1.3); POTASSIUM 4.3 mmol/L (3.5-5.1)
[2018-03-29 08:00] VITALS: BP 148/71
[2018-03-29 19:54] VITALS: BP 130/52
[2018-03-30 07:30] VITALS: BP 124/62
[2018-03-30 19:09] VITALS: BP 114/59
[2018-03-31 07:33] VITALS: BP 128/66
[2018-03-31 08:58] LABS: URINE BILIRUBIN NEGATIVE (Negative); URINE BLOOD TRACE (Negative); URINE CLARITY CLEAR; URINE COLOR STRAW; URINE GLUCOSE-RANDOM NEGATIVE (Negative); URINE KETONES NEGATIVE (Negative); URINE LEUKOCYTES-REFLEX 1+ (Negative); URINE NITRITE-REFLEX NEGATIVE (Negative); URINE PROTEIN TRACE (Negative); URINE UROBILINOGEN 0.2 E.U./dl (0.2-1.0)
[2018-03-31 09:02] LABS: SQUAMOUS 0-3 Few /LPF (0-3)
[2018-03-31 09:03] LABS: URINE RBC 0-2 Rare /HPF (0-2); URINE WBC-REFLEX 0-5 Rare /HPF (0-5)
[2018-03-31 09:04] LABS: BACTERIA-REFLEX >30 Many /HPF (None Seen); CASTS None Seen /LPF (None Seen); CRYSTALS None Seen /LPF (None Seen)
[2018-03-31 19:39] VITALS: BP 128/53
[2018-04-01 08:25] VITALS: BP 139/66
[2018-04-01 20:00] VITALS: BP 129/64
[2018-04-02 03:31] LABS: HEMATOCRIT 34.5 % (37.0-47.0); HEMOGLOBIN 11.1 gm/dL (12.0-15.0); MCHC 32.1 g/dL (28.0-37.0)
[2018-04-02 03:33] LABS: MCH 28.2 pg (26.0-34.0); MCV 87.8 fL (80.0-100.0); MPV 8.7 fl. (7.2-11.1); RBC 3.93 mil/uL (4.20-5.00); RDW-CV 14.9 % (10.5-14.5); WBC 11.8 thou/uL (4.0-11.0)
[2018-04-02 03:43] LABS: ALBUMIN 2.3 g/dL (3.4-5.0); CALCIUM 9.3 mg/dL (8.5-10.1); MAGNESIUM 2.4 mg/dL (1.8-2.4); POTASSIUM 4.9 mmol/L (3.5-5.1); TOTAL BILIRUBIN 0.2 mg/dL (<0.1-1.0)
[2018-04-02 07:30] VITALS: BP 136/54
[2018-04-02 19:40] VITALS: BP 121/67
[2018-04-03 08:00] VITALS: BP 137/60
[2018-04-03 19:45] VITALS: BP 156/65
[2018-04-04 04:18] LABS: HEMATOCRIT 32.3 % (37.0-47.0); HEMOGLOBIN 10.4 gm/dL (12.0-15.0); MCH 28.5 pg (26.0-34.0); MCHC 32.2 g/dL (28.0-37.0); MCV 88.5 fL (80.0-100.0); MPV 8.6 fl. (7.2-11.1); RBC 3.64 mil/uL (4.20-5.00); RDW-CV 15.1 % (10.5-14.5); WBC 10.1 thou/uL (4.0-11.0)
[2018-04-04 04:28] LABS: ALBUMIN 2.3 g/dL (3.4-5.0); CALCIUM 9.3 mg/dL (8.5-10.1); CREATININE 2.8 mg/dL (0.6-1.3); MAGNESIUM 2.5 mg/dL (1.8-2.4); PHOSPHORUS* 3.5 mg/dL (2.5-4.9); POTASSIUM 5.4 mmol/L (3.5-5.1); TOTAL BILIRUBIN 0.2 mg/dL (<0.1-1.0); TOTAL PROTEIN 6.4 g/dL (6.4-8.2)
[2018-04-04 08:00] VITALS: BP 124/61
[2018-04-04 19:45] VITALS: BP 173/71
[2018-04-05] VITALS: BP 173/71
[2018-04-05 07:45] VITALS: BP 128/68
[2018-04-05] MEDS ORDERED: ROBAXIN 750 MG750 M1 PO (09:48)
--- NOTE | 2018-04-10 13:59 | D ---
[facility] [address] [place] [address] DISCHARGE SUMMARY Name: KRYSTINA GANN Room: [address] IN [facility]#: [id number] Admission: 03/28/18 Attend Phys: Oma Mahajan DO Discharge: 04/05/18 Date of : 43 Report #: [id number] THIS REPORT FOR: //name// CC: [facility] physician/PCP Oma Mahajan DATE OF SERVICE: 04/05/2018 DICTATED BY: HOSPITAL COURSE: The patient was discharged with diagnoses of debility status post ureteral stent exchange. The patient was discharged to [facility], with specific request for psych evaluation at [facility]. The patient to follow up with Dr. Dejan Aguilar in 1 week. Physician notifications were given to patient. The patient to continue on regular diet, monitoring weight gain and with limitations including fall precautions and a four-wheel walker for ambulation. MEDICATIONS: Reviewed and reconciled by myself and are available in the MAR. One specific medication change includes Zoloft 100 mg p.o. every day, changed from Zoloft 50 mg p.o. every day. All other medications are consistent with prior to admission regimen. DISCHARGE PHYSICAL EXAMINATION: HEAD: Atraumatic. NECK: No JVD. CHEST: Normal air movement. ABDOMEN: No tenderness to palpation. MUSCULOSKELETAL: Normal range of motion. EXTREMITIES: No cyanosis. NEUROLOGIC: Slight tremor, with no focal neurologic deficits. The patient's mood towards goals while on rehab floor, however, remained at total assist to moderate assist for her PT and OT needs. <ELECTRONICALLY SIGNED> By: Oma Mahajan DO 04/10/18 1359 [id number] Mahajan DO /nt
== END 2018-04-05 14:44 | DRG 71 ==
LOC: M.REH 17:54
PROVIDERS: Internal Medicine; ADMIT Physical Medicine & Rehabilitation
DX: G93.49 Other encephalopathy (principal); N11.1 Chronic obstructive pyelonephritis; N17.9 Acute kidney failure, unspecified; B37.49 Other urogenital candidiasis; R53.81 Other malaise; R56.9 Unspecified convulsions; R29.6 Repeated falls; M62.830 Muscle spasm of back; F41.9 Anxiety disorder, unspecified; N18.9 Chronic kidney disease, unspecified; Z87.891 Personal history of nicotine dependence; Z87.440 Personal history of urinary (tract) infections; Z79.899 Other long term (current) drug therapy; Z88.8 Allergy status to other drugs, medicaments and biological substances